=== PATIENT | male | born 1995 | race Caucasian/White ===

== ENCOUNTER 2017-08-28 13:59 | Emergency (ER) | payer OTHER ==
[2017-08-28 14:12] VITALS: PULSE 61; RESP 18
--- NOTE | 2017-08-28 14:18 | EDPHY ---
H & P Time Seen by Provider: 08/28/17 14:16 HPI/ROS: CHIEF COMPLAINT: MS exacerbation. HISTORY OF PRESENT ILLNESS: Pleasant 22 y/o male history of MS arrives with his mother at the request of his neurologist, Dr. Tobin, for evaluation of involuntary jerking movements and decreased cognitive function. He went for a routine followup today and his neurologist noticed he was twitching his shoulders and hands. The patent thinks this has been happening for a while and attributes it to his cigarette smoking. His neurologist reported decreased performance on cognitive exam compared to normal and that he was more "hyper" appearing than usual as well. She recommended he present for evaluation and MRI. He was originally diagnosed with MS due to optic neuritis about one year ago. A couple months ago, he felt numbness in his legs and feet which has now largely resolved. He takes Avonex daily. The patient denies any new weakness or numbness or other unusual symptoms. REVIEW OF SYSTEMS: A 10 point review of systems was performed and is negative with the exception of the elements mentioned in the history of present illness. Past Medical/Surgical History: Multiple sclerosis Social History: Neurologist: Dr. Tobin Mother at bedside. Daily tobacco use. Smoking Status: Current every day smoker Physical Exam: General Appearance: Alert, pleasant Eyes: Pupils equal and round, no conjunctival pallor or injection ENT, Mouth: Mucous membranes moist Neck: Normal inspection Respiratory: Lungs are clear to auscultation Cardiovascular: Regular rate and rhythm Gastrointestinal: Abdomen is soft and non-tender Neurological: Alert, oriented x3, cranial nerves II through XII intact, motor 5 /5, sensory intact to light touch, normal gait Skin: Warm and dry, no rash Extremities: Nontender, no pedal edema Psychiatric: Mood and affect normal Constitutional: Initial Vital Signs Temperature (C) 36.7 C 08/28/17 14:09 Heart Rate 61 08/28/17 14:09 Respiratory Rate 18 08/28/17 14:09 Blood Pressure 128/62 H 08/28/17 14:09 O2 Sat (%) 97 08/28/17 14:09 O2 Delivery Mode Room Air Allergies/Adverse Reactions: No Known Allergies Allergy (Unverified 08/28/17 14:08) Home Medications: Medication Instructions Recorded Avonex 08/28/17 VITAMIN D 08/28/17 Medical Decision Making - Diagnostics Imaging Results: Imaging Impressions Brain MRI 08/28/17 14:17 Impression: 1. Periventricular and deep hemispheric white matter lesions which can be seen with multiple sclerosis, as given by history. 2. Mixed progression with one, possibly two, new small lesions in the left frontal and parietal-occipital region and with diminished visualization of the lesion in the left parietal lobe and a couple of lesions in the right frontal lobe. No evidence for abnormal enhancement to indicate active disease. Results called and discussed with Dr. Helen Shine on 08/28/2017, 15:46. Imaging: Discussed imaging studies w/ call center team leader Radiologist ED Course/Re-evaluation: 22 y/o male with history of MS presents at the request of his neurologist for evaluation of twitches in his shoulder and hands as well as generally appearing more "loud" and "hyper" than usual with some decreased cognitive function on testing. He is alert and appropriate on my exam with no focal neurologic deficits. Plan for MRI brain with and without contrast, laboratory studies including BMP, chemistries, TSH. 15:[address] Driscoll, radiologist. MRI brain negative for evidence of active MS disease. MRI results d/w pt and his mother. No evidence of active MS. Consulted Dr. Tobin after MRI. Given unremarkable MRI, no recurrent jerking movements and normal mental status, will d/c home. F/u in office. Differential Diagnosis: Differential diagnosis includes though it is not limited to status epilepticus, hypoglycemia, intracranial hemorrhage, CVA, benzodiazepine withdrawal, alcohol withdrawal, epilepsy. - Data Points Laboratory Results: Laboratory Results 08/28/17 14:34 08/28/17 14:34 08/28/17 08/28/17 14:34 14:34 WBC 5.75 10^3/uL 10^3/uL (3.80-9.50) RBC 5.22 10^6/uL 10^6/uL (4.40-6.38) Hgb 16.6 g/dL g/dL (13.7-17.5) Hct 47.2 % % (40.0-51.0) MCV 90.4 fL fL (81.5-99.8) MCH 31.8 pg pg (27.9-34.1) MCHC 35.2 g/dL g/dL (32.4-36.7) RDW 11.7 % % (11.5-15.2) Plt Count 222 10^3/uL 10^3/uL (150-400) MPV 10.3 fL fL (8.7-11.7) Neut % (Auto) 53.4 % % (39.3-74.2) Lymph % (Auto) 33.9 % % (15.0-45.0) Perry % (Auto) 8.3 % % (4.5-13.0) Eos % (Auto) 2.8 % % (0.6-7.6) Baso % (Auto) 1.4 % % (0.3-1.7) Nucleat RBC Rel Count 0.0 % % (0.0-0.2) Absolute Neuts (auto) 3.07 10^3/uL 10^3/uL (1.70-6.50) Absolute Lymphs (auto) 1.95 10^3/uL 10^3/uL (1.00-3.00) Absolute Monos (auto) 0.48 10^3/uL 10^3/uL (0.30-0.80) Absolute Eos (auto) 0.16 10^3/uL 10^3/uL (0.03-0.40) Absolute Basos (auto) 0.08 10^3/uL 10^3/uL (0.02-0.10) Absolute Nucleated RBC 0.00 10^3/uL 10^3/uL (0-0.01) Immature Gran % 0.2 % % (0.0-1.1) Immature Gran # 0.01 10^3/uL 10^3/uL (0.00-0.10) Sodium 143 mEq/L mEq/L (135-145) Potassium 4.3 mEq/L mEq/L (3.5-5.2) Chloride 103 mEq/L mEq/L (97-110) Carbon Dioxide 27 mEq/l mEq/l (22-31) Anion Gap 13 mEq/L mEq/L (8-16) BUN 17 mg/dL mg/dL (7-23) Creatinine 1.0 mg/dL mg/dL (0.7-1.3) Estimated GFR > 60 Glucose 97 mg/dL mg/dL (70-100) Calcium 10.1 mg/dL mg/dL (8.5-10.4) TSH 2.280 uIU/mL uIU/mL (0.465-4.680) Departure - Departure Disposition: Home, Routine, Self-Care Clinical Impression: Multiple sclerosis, Jerking movements of extremities Condition: Good Instructions: Multiple Sclerosis (DC) Additional Instructions: Follow with Dr. Tobin in the office next week. Return for recurrent symptoms or any concerns. Referrals: Carmita Tobin, [Primary Care Provider] - As per Instructions Report Scribed for: Helen Shine Report Scribed by: Chapis Lagunas Date of Report: 08/28/17 Time of Report: 14:18 Physician Review and Approval Statement: 08/28/17 14:18 Portions of this note were transcribed by a medical record librarians teacher. I personally performed a history, physical exam, medical decision making, and confirmed accuracy of information the transcribed note.
[2017-08-28 14:42] LABS: PLATELET COUNT 222 10^3/uL (150-400)
[2017-08-28] MEDS ORDERED: GADOBUTROL 10 ML VIAL IVP ONE (14:59)
[2017-08-28 16:06] VITALS: BP 107/61; TEMP 98.2; O2SAT 96
== END 2017-08-28 16:09 | disposition home or self-care (01) ==
DX: R25.1 Tremor, unspecified (principal); G35 Multiple sclerosis; F17.200 Nicotine dependence, unspecified, uncomplicated
CPT/HCPCS: A9585